=== PATIENT | male | born 1960 | race Hispanic/Latino ===

== ENCOUNTER 2024-12-19 09:29 | Emergency (ER) | payer OTHER, SELFPAY ==
--- NOTE | 2024-12-19 10:56 | EDRN ---
Zoila SHIELDS in room w/ pt.
[2024-12-19 11:23] LABS: % Basophils 0.6 % (0-2); % Eosinophils 2.7 % (0-6); % Immature Granulocytes 0.2 % (0-0.5); % Lymphocytes 27.4 % (20.5-51.1); % Monocytes 8.6 % (1.7-9.3); % Neutrophils 60.5 % (42.2-75.2); Absolute Eosinophils 0.1 10^3/uL (0-0.7); Absolute Lymphocytes 1.4 10^3/uL (1.2-3.4); Absolute Monocytes 0.5 10^3/uL (0.1-0.6); Absolute Neutrophils 3.2 10^3/uL (1.4-6.5); Hematocrit 41.1 % (39.0-52.0); Hemoglobin 14.3 g/dL (13.0-18.0); Mean Corp Hgb Conc. 34.8 g/dL (33.0-37.0); Mean Corpuscular Hgb 33.7 pg (27.0-31.0); Mean Corpuscular Volume 96.9 fL (80.0-94.0); Mean Platelet Volume 8.7 fL (7.4-10.4); Nucleated Red Blood Cells % 0 % (-); Platelet Count 143 10^3/uL (130-400); Red Blood Cell Count 4.24 10^6/uL (4.70-6.10); Red Cell Dist. Width 14.6 % (11.5-14.5); White Blood Cell Count 5.2 10^3/uL (4.8-10.8)
--- NOTE | 2024-12-19 11:24 | ED.GENMED ---
History of Present Illness
General
Chief Complaint: Abdominal Symptoms
Time Seen by Provider: 12/19/24 10:41
History of Present Illness
History of Present Illness:
63-year-old male presents the emergency department for evaluation of diffuse abdominal discomfort for the past 2 to 3 days that is now radiating toward the left back. States it is a burning pain to the skin. No fevers but has had some chills and
sweats. No lower GI symptoms no lower urinary tract voiding symptoms.
Past History
Past History
ED Past Medical History: GERD, HTN, Other (Pancreatitis) and Other (Covid 19 pneumonitis with sepsis and hypoxic respiratory failure November 2019)
ED Past Surgical History: Orthopedic
Social History
Tobacco: Non-smoker
Alcohol: None
Personal:
Living: with family (With son)
Employment: Employed
Family History
Family History: Other (Noncontributory)
Review of Systems
Review of Systems
Allergies reviewed?: Yes
All Other Systems: ROS reviewed and negative except as documented in HPI and ROS
Phy Exam
Physical Exam
Physical Exam:
GEN: Well appearing, NAD, WDWN
HEENT: Oral mucosa moist, no scleral icterus
Cardiac: Regular rate
Lung: No respiratory distress, no tachypnea
Abdomen: Soft, generally nontender, no rigidity
MSK: No gross deformity or injuries
Skin: Good color, no pallor or jaundice, clustered vesicular lesions to the left mid to lower back extending toward the flank compatible with zoster
Neuro: AO x3, moves all extremities freely
Psych: Calm, cooperative
Course
Orders/Labs/Results
Orders:
Orders
12/19/24 11:11
Complete Blood Count/With Diff Urgent
Comprehensive Metabolic Panel Urgent
Lipase Urgent
12/19/24 11:49
Gabapentin [Neurontin] 300 mg PO NOW STA
Abnormal Lab Results
12/19/24
11:11
RBC 4.24 L 10^6/uL
(4.70-6.10)
MCV 96.9 H fL
(80.0-94.0)
MCH 33.7 H pg
(27.0-31.0)
RDW 14.6 H %
(11.5-14.5)
Chloride 113 H mmol/L
(98-107)
12/19/24 11:11
12/19/24 11:11
Vital Signs
Initial and Last Documented VS:
Initial Vital Signs
Temp Pulse Resp BP Pulse Ox
98.1 F 83 16 158/101 96
12/19/24 09:31 12/19/24 09:31 12/19/24 09:31 12/19/24 09:31 12/19/24 09:31
Last Documented Vital Signs
Temp Pulse Resp BP Pulse Ox
98.2 F 66 18 146/67 98
12/19/24 12:44 12/19/24 13:00 12/19/24 13:00 12/19/24 13:00 12/19/24 12:44
MDM/Problems Addressed
MDM/Problems Addressed:
Labs are normal, he has a reassuring abdominal exam. Do not have any clinical concern for intra-abdominal pathology, I suspect the symptoms are driven by herpes zoster and will treat accordingly with antivirals and gabapentin
*Critical Care Note
Total Time (30-74mins, 75-104mins- exclusive of procedures): Not Applicable
ED Attending Note
-
Portions of this chart may have been created with voice recognition software.� Occasional wrong word or��sound alike� substitutions may have occurred due to the inherent limitations of voice recognition software.
Discharge Plan
Departure
Patient Disposition: Home (Routine Discharge)
Date of Disposition: 12/19/24
Time of Disposition: 11:46
Patient with high blood pressure during this ER visit?: No
Discharge Problem:
Herpes zoster
Instructions: Shingles
Prescriptions:
New
gabapentin 300 mg capsule
300 mg PO TID Qty: 30 0RF
valacyclovir 1 gram tablet
1,000 mg PO Q8H 7 Days Qty: 21 0RF
No Action
pantoprazole 40 MG tablet,delayed release (DR/EC)
40 mg PO DAILY 30 Days Qty: 30 0RF
Rx Instructions:
Stop after 30 days.
acetaminophen 325 MG tablet
650 mg PO Q4HPRN PRN (Reason: fever, mild pain) 0RF
tramadol 50 MG tablet
50 mg PO Q6HPRN PRN (Reason: moderate pain) Qty: 30 0RF
metoprolol tartrate 50 MG tablet
50 mg PO BID Qty: 120 0RF
Sutab 1.479-0.188- 0.225 gram Tablet
0 tab PO PER PKG DIR
pantoprazole 40 mg tablet,delayed release (DR/EC)
40 mg PO DAILY Qty: 30 0RF
sucralfate [Carafate] 100 mg/mL suspension
10 ml PO QID Qty: 1000 0RF
Referrals:
Kojo Bermudez DO [Family Provider, Family Practice]
Interventions
Interventions:
*Risk Screen - Suicide Last Done: 12/19/24 09:31
*General Assessment Last Done: 12/19/24 11:29
*Neglect/Abuse Screening Last Done: 12/19/24 11:29
*ED- Fall Risk Assessment Last Done: 12/19/24 11:29
*ED COVID-19 Vaccine History Last Done: 12/19/24 11:29
*Nursing Disposition Last Done: 12/19/24 13:00
YK-Apum[facility]-Kbzkohiqwp Assessment Last Done: 12/19/24 11:15
Discharge Date and Time
Discharge Date/Time: 12/19/24 13:00
Print Language: MALTESE
[2024-12-19 11:40] LABS: ALT (SGPT) 34 U/L (0-50); AST (SGOT) 22 U/L (17-59); Albumin 4.3 g/dl (3.5-5.0); Alkaline Phosphatase 48 U/L (38-126); Blood Urea Nitrogen 11 mg/dl (9-20); Calcium 8.8 mg/dl (8.4-10.2); Carbon Dioxide 24 mmol/L (22-30); Chloride 113 mmol/L (98-107); Estimated Creatinine Clearance 89 ml/min; Glucose 98 mg/dl (70-99); Lipase 92 U/L (23-300); Potassium 4.5 mmol/L (3.5-5.1); Sodium 142 mmol/L (135-145); Total Bilirubin 0.6 mg/dl (0.2-1.3); Total Protein 7.4 g/dl (6.3-8.2); eGFR > 60.00
[2024-12-19] MEDS: NEURONTIN 300 MG PO (12:53)
== END 2024-12-19 13:00 | disposition home or self-care (01) ==
LOC: EMR 09:29
PROVIDERS: Physician Assistant; EMERGENCY PHYSICIAN Emergency Medicine; FAMILY PHYSICIAN Family Medicine
DX: B02.9 Zoster without complications (principal); R10.9 Unspecified abdominal pain; M54.9 Dorsalgia, unspecified; R68.83 Chills (without fever); I10 Essential (primary) hypertension; K21.9 Gastro-esophageal reflux disease without esophagitis; Z86.16 Personal history of COVID-19; Z88.5 Allergy status to narcotic agent
CPT/HCPCS: 99283; 80053; 83690; 85025